=== PATIENT | male | born 1965 | race Caucasian/White ===

== ENCOUNTER 2016-06-04 15:30 | Emergency (ER) | payer OTHER ==
[2016-06-04] MEDS ORDERED: NS 0.9% 1000 ML* 1,000 ML IV ONE (18:36)
[2016-06-04 19:07] LABS: Hematocrit 43 % (42-52); Hemoglobin 14.8 g/dl (14.0-18.0); Mean Corpuscular HGB Conc 34 g/dl (31-36); Mean Corpuscular Hemoglobin 31 pg (27-31); Mean Corpuscular Volume 91 fL (80-94); Mean Platelet Volume 8 um3 (7.4-10.4); Red Blood Count 4.78 10^6/ul (4.0-5.4); Red Cell Distribution Width 13 % (10.5-15); White Blood Count 7.2 10^3/ul (3.5-10.8)
[2016-06-04 19:21] LABS: Troponin I 0.01 ng/mL (<0.04)
[2016-06-04 19:28] LABS: Albumin 4.2 g/dL (3.2-5.2); BUN/Creatinine Ratio 12.2 (8-20); C Reactive Protein 1.88 mg/L (< 5.00); Calcium 9.5 mg/dL (8.6-10.3); EGFR African American 103.7 (>60); EGFR Non-African American 80.6 (>60); Globulin 2.9 g/dL (2-4); Magnesium 2.2 mg/dL (1.9-2.7); Total Bilirubin 0.7 mg/dL (0.2-1.0); Total Protein 7.1 g/dL (6.4-8.9)
[2016-06-04 19:29] LABS: TSH (Thyroid Stimulating Horm) 1.63 mcIU/mL (0.34-5.60)
--- NOTE | 2016-06-04 19:42 | RAD ---
Indication: Chest pain. Single frontal view of the chest performed at 1850 hours was reviewed. Comparison is made with previous exam dated September 17, 2006. Cardiomegaly is noted. Lobulated right hemidiaphragm is noted. Lung nichols are clear. No changes noted since prior exam. IMPRESSION: NO ACTIVE CARDIOPULMONARY DISEASE IS NOTED.
--- NOTE | 2016-06-04 20:57 | RAD ---
Indication: Left leg edema. Duplex Doppler sonography of the deep venous system of the left lower extremity deep venous system was performed. Bilaterally the common femoral veins appear patent and compressible. Left proximal greater saphenous vein, proximal deep femoral vein, femoral vein, popliteal vein, posterior tibial veins and peroneal veins appear patent and compressible. Superficial thrombophlebitis is noted in the mid calf. IMPRESSION: NO EVIDENCE OF DEEP VENOUS THROMBOSIS IS IDENTIFIED. SUPERFICIAL THROMBOPHLEBITIS IN THE MID CALF.
--- NOTE | 2016-06-04 21:29 | ED ---
Estefany Saenz Alok, scribed for Kody Bazan MD on 06/04/16 at 2009 . Palpitations / Dysrhythmia - HPI Summary HPI Summary: Patient is a 50 year-old male coming to [facility] with a c/o rapid heart palpitations today at 1330 while walking. He states that he had to stop walking due to feelings of near-syncope and anxiety. His palpitations spontaneously resolved after 1 minute of rest, although he states he continued to have mild diaphoresis, SOB, and nausea afterwards. He also reports chest tightness, severity 3/10. He states he has had several similar episodes in the last 2 weeks , which he believe are related to exertion. He reports chronic LLE edema which he states may be related to an existing LLE superficial blood clot. He has an appointment with his director geothermal operations next week. - History of Current Complaint Chief Complaint: EDChestPainROMI Time Seen by Provider: 06/04/16 18:36 Hx Obtained From: Patient Onset/Duration: Gradual Onset, Lasting Minutes, Resolved Timing: Intermittent Episodes Lasting: - minute Severity Initially: Moderate Severity Currently: None Character: Fast Aggravating: Exertion Alleviating: Rest Associated Signs & Symptoms: Chest Pain, Shortness of Breath, Diaphoresis, Nausea - Allergy/Home Medications Allergies/Adverse Reactions: Allergies Allergy/AdvReac Type Severity Reaction Status Date / Time No Known Allergies Allergy Verified 06/04/16 18:14 PMH/Surg Hx/FS Hx/Imm Hx Cardiovascular History: Reports: Hx Hypercholesterolemia, Hx Hypertension - Borderline GI History: Reports: Other GI Disorders - hernia Psychiatric History: Reports: Hx Anxiety - Surgical History Surgery Procedure, Year, and Place: bariatric surgery Infectious Disease History: No Infectious Disease History: Denies: Traveled Outside the [place] in Last 30 Days - Family History Known Family History: Positive: Other - HLD - Social History Occupation: Employed Full-time Alcohol Use: None Substance Use Type: Reports: None Smoking Status (MU): Never Smoked Tobacco Review of Systems Positive: Skin Diaphoresis. Negative: Fever Negative: Blurred Vision Positive: Palpitations, Chest Pain Positive: Shortness Of Breath Positive: Nausea Positive: Edema Positive: Anxious All Other Systems Reviewed And Are Negative: Yes Physical Exam - Summary Physical Exam Summary: General: Well-appearing, no pain distress Skin: Warm, color reflects adequate perfusion, dry Head/Face: Normal Eyes: EOMI, TIFFANY ENT: Normal Neck: Supple, nontender Respiratory: CTA, breath present Cardiovascular: RRR. Left leg swollen Abdominal: Nontender, soft Bowel: Present Misc: Normal; strength/ROM intact Neuro: Normal; sensory/motor intact, A&Ox3 Psych: Affect/mood appropriate Triage Information Reviewed: Yes Vital Signs On Initial Exam: Initial Vitals Temp Pulse Resp BP Pulse Ox 97.8 F 70 16 132/85 100 06/04/16 15:43 06/04/16 15:43 06/04/16 15:43 06/04/16 15:43 06/04/16 15:43 Vital Signs Reviewed: Yes - [place] Coma Scale Coma Scale Total: 15 Diagnostics - Vital Signs Vital Signs Temp Pulse Resp BP Pulse Ox 06/04/16 19:00 62 17 100 06/04/16 18:30 62 13 122/89 98 06/04/16 18:11 63 99 06/04/16 18:09 119/74 06/04/16 17:42 98.2 F 61 20 114/77 99 06/04/16 16:43 98.2 F 63 16 110/76 99 06/04/16 15:43 97.8 F 70 16 132/85 100 - Laboratory Lab Results: Lab Results 06/04/16 06/04/16 06/04/16 Range/Units 18:45 18:45 18:45 WBC 7.2 (3.5-10.8) 10^3/ul RBC 4.78 (4.0-5.4) 10^6/ul Hgb 14.8 (14.0-18.0) g/dl Hct 43 (42-52) % MCV 91 (80-94) fL MCH 31 (27-31) pg MCHC 34 (31-36) g/dl RDW 13 (10.5-15) % Plt Count 241 (150-450) 10^3/ul MPV 8 (7.4-10.4) um3 Neut % (Auto) 70.6 (38-83) % Lymph % (Auto) 19.2 L (25-47) % [place] % (Auto) 8.3 (1-9) % Eos % (Auto) 1.6 (0-6) % Baso % (Auto) 0.3 (0-2) % Absolute Neuts (auto) 5.1 (1.5-7.7) 10^3/ul Absolute Lymphs (auto) 1.4 (1.0-4.8) 10^3/ul Absolute Monos (auto) 0.6 (0-0.8) 10^3/ul Absolute Eos (auto) 0.1 (0-0.6) 10^3/ul Absolute Basos (auto) 0 (0-0.2) 10^3/ul Absolute Nucleated RBC 0.01 10^3/ul Nucleated RBC % 0.1 INR (Anticoag Therapy) 0.93 (0.89-1.11) APTT 30.6 (26.0-36.3) seconds D-Dimer, Quantitative < 200 (Less Than 230) ng/mL Sodium 137 (133-145) mmol/L Potassium 4.0 (3.5-5.0) mmol/L Chloride 103 (101-111) mmol/L Carbon Dioxide 29 (22-32) mmol/L Anion Gap 5 (2-11) mmol/L BUN 12 (6-24) mg/dL Creatinine 0.98 (0.67-1.17) mg/dL Est GFR ( Amer) 103.7 (>60) Est GFR (Non-Af Amer) 80.6 (>60) BUN/Creatinine Ratio 12.2 (8-20) Glucose 90 (70-100) mg/dL Lactic Acid (0.5-2.0) mmol/L Calcium 9.5 (8.6-10.3) mg/dL Magnesium 2.2 (1.9-2.7) mg/dL Total Bilirubin 0.70 (0.2-1.0) mg/dL AST 25 (13-39) U/L ALT 21 (7-52) U/L Alkaline Phosphatase 59 (34-104) U/L Total Creatine Kinase 289 H (10-223) U/L CK-MB (CK-2) 8.7 H (0.6-6.3) ng/mL Troponin I 0.01 (<0.04) ng/mL C-Reactive Protein 1.88 (< 5.00) mg/L B-Natriuretic Peptide ( - 100) pg/mL Total Protein 7.1 (6.4-8.9) g/dL Albumin 4.2 (3.2-5.2) g/dL Globulin 2.9 (2-4) g/dL Albumin/Globulin Ratio 1.4 (1-3) Lipase 25 (11.0-82.0) U/L TSH 1.63 (0.34-5.60) mcIU/mL 06/04/16 06/04/16 Range/Units 18:45 18:45 WBC (3.5-10.8) 10^3/ul RBC (4.0-5.4) 10^6/ul Hgb (14.0-18.0) g/dl Hct (42-52) % MCV (80-94) fL MCH (27-31) pg MCHC (31-36) g/dl RDW (10.5-15) % Plt Count (150-450) 10^3/ul MPV (7.4-10.4) um3 Neut % (Auto) (38-83) % Lymph % (Auto) (25-47) % [place] % (Auto) (1-9) % Eos % (Auto) (0-6) % Baso % (Auto) (0-2) % Absolute Neuts (auto) (1.5-7.7) 10^3/ul Absolute Lymphs (auto) (1.0-4.8) 10^3/ul Absolute Monos (auto) (0-0.8) 10^3/ul Absolute Eos (auto) (0-0.6) 10^3/ul Absolute Basos (auto) (0-0.2) 10^3/ul Absolute Nucleated RBC 10^3/ul Nucleated RBC % INR (Anticoag Therapy) (0.89-1.11) APTT (26.0-36.3) seconds D-Dimer, Quantitative (Less Than 230) ng/mL Sodium (133-145) mmol/L Potassium (3.5-5.0) mmol/L Chloride (101-111) mmol/L Carbon Dioxide (22-32) mmol/L Anion Gap (2-11) mmol/L BUN (6-24) mg/dL Creatinine (0.67-1.17) mg/dL Est GFR ( Amer) (>60) Est GFR (Non-Af Amer) (>60) BUN/Creatinine Ratio (8-20) Glucose (70-100) mg/dL Lactic Acid 0.7 (0.5-2.0) mmol/L Calcium (8.6-10.3) mg/dL Magnesium (1.9-2.7) mg/dL Total Bilirubin (0.2-1.0) mg/dL AST (13-39) U/L ALT (7-52) U/L Alkaline Phosphatase (34-104) U/L Total Creatine Kinase (10-223) U/L CK-MB (CK-2) (0.6-6.3) ng/mL Troponin I (<0.04) ng/mL C-Reactive Protein (< 5.00) mg/L B-Natriuretic Peptide 35 ( - 100) pg/mL Total Protein (6.4-8.9) g/dL Albumin (3.2-5.2) g/dL Globulin (2-4) g/dL Albumin/Globulin Ratio (1-3) Lipase (11.0-82.0) U/L TSH (0.34-5.60) mcIU/mL Result Diagrams: 06/04/16 18:45 06/04/16 18:45 Lab Statement: Any lab studies that have been ordered have been reviewed, and results considered in the medical decision making process. - Radiology CXR Xray Interpretation: No Acute Changes Radiology Interpretation Completed By: Radiologist - EKG 1532 Cardiac Rate: NL - 91 bpm EKG Rhythm: Sinus Rhythm ST Segment: Normal Ectopy: PACs - Additional Comments Diagnostic Additional Comments: Lower extremity veins left US IMPRESSION: NO EVIDENCE OF DEEP VENOUS THROMBOSIS IS IDENTIFIED. SUPERFICIAL THROMBOPHLEBITIS IN THE MID CALF. Course/Dx - Course Assessment/Plan: WELL IN ED. DISCUSSED RESULTS WITH HIS PATIENT. PATIENT REPORTS HE HAS AN APPOINTMENT WITH HIS PAEDIATRIC THORACIC PHYSICIAN NEXT WEEK. DISCUSSED WITH DR EMANUEL. DISCHARGE HOME STABLE. - Diagnoses Provider Diagnoses: Palpitations - Physician Notifications Discussed Care Of Patient With: Dr. Emanuel (director geothermal operations) @ 19:20 - Dr. Emanuel states that it is okay for pt to follow up with his own director geothermal operations Discharge - Discharge Plan Condition: Stable Disposition: HOME Patient Education Materials: Palpitations (ED) Referrals: Lester BURCH,Waldemar Rosen [Primary Care Provider] - Additional Instructions: FOLLOW UP WITH YOUR PRIMARY CARE DOCTOR AND PAEDIATRIC THORACIC PHYSICIAN. DISCUSS HAVING AN EVENT MONITOR. RETURN TO THE EMERGENCY DEPARTMENT FOR ANY WORSENING OF YOUR CONDITION; CHEST PAIN, SHORTNESS OF BREATH, YOU FEEL LIKE YOU ARE GOING TO PASS OUT OR QUESTIONS OR CONCERNS. The documentation as recorded by the Estefany barfield Alok accurately reflects the service I personally performed and the decisions made by me, Kody Bazan MD.
[2016-06-04 21:35] VITALS: BP 124/82
== END 2016-06-04 21:34 | disposition home or self-care (01) ==
LOC: ED 15:30
DX: R00.2 Palpitations (principal); R07.9 Chest pain, unspecified; R06.02 Shortness of breath; R61 Generalized hyperhidrosis
CPT/HCPCS: 36415; 71010; 80053; 82550; 82553; 83605; 83690; 83735; 83880; 84443; 84484; 85025; 85379; 85610; 85730; 86140; 93005; 96360; 99283

== ENCOUNTER 2017-11-19 13:46 | Emergency (ER) | payer OTHER ==
[2017-11-19 13:57] VITALS: BP 118/72
--- NOTE | 2017-11-19 14:10 | UC ---
Cardiac HPI - HPI Summary HPI Summary: This is lico Nagel documenting for attending Kody Bazan MD. This patient is a 52 year old M resenting to [place] with a chief complaint of CP that occurred earlier today that has resolved. Pt has had intermittent CP with light headedness for the past few days. Today after a hike the patient states he felt fine but as time went on he began having CP accompanied by SOB, neck pain, epigastric pain, and pain into the left arm. He called his skate shop attendant and they suggested he come to see them. Patient was on his way to skate shop attendant in [place] when he felt he was going to pass out so he came to the ED. By the time the patient got here the sx resolved. These sx he had today accompany every instance of CP that he has been having intermittently. The patient rates the pain 0/10 in severity. He has not taken ASA today. Patient denies palpitations, LE pain, and LE edema. Hx anxiety and believes sx are related to this. He also has a hx of afib and had a cath last year where no occlusions were found. - History of Current Complaint Chief Complaint: UCChestPain Stated Complaint: SOB DIZZY CHEST PAIN Time Seen by Provider: 11/19/17 13:54 Hx Obtained From: Patient Onset/Duration: Lasting Minutes, Resolved Initial Severity: Moderate Current Severity: None Pain Intensity: 0 Chest Pain Location: Diffuse Alleviating Factor(s): Spontaneous Resolution Associated Signs & Symptoms: Positive: Anxiety, SOB, Syncope - near, Abdominal Pain. Negative: Palpitations, Calf Pain/Swelling - Allergy/Home Medications Allergies/Adverse Reactions: Allergies Allergy/AdvReac Type Severity Reaction Status Date / Time No Known Allergies Allergy Verified 11/19/17 13:57 Home Medications: Home Medications Aspirin 81 mg PO DAILY 11/19/17 [History Confirmed 11/19/17] Carvedilol [Coreg] 25 mg PO BID 11/19/17 [History Confirmed 11/19/17] Losartan TAB* [Cozaar TAB*] 25 mg PO DAILY 11/19/17 [History Confirmed 11/19/17] Pantoprazole TAB (NF) [Protonix TAB (NF)] 40 mg PO DAILY 11/19/17 [History Confirmed 11/19/17] Rivaroxaban TAB(*) [Xarelto 10 mg (*)] 10 mg PO DAILY 11/19/17 [History Confirmed 11/19/17] Simvastatin 20 mg pe PO DAILY 11/19/17 [History Confirmed 11/19/17] PMH/Surg Hx/FS Hx/Imm Hx Cardiovascular History: Hypertension, Atrial Fibrillation Other History Of: Negative For: Anticoagulant Therapy - Surgical History Surgical History: Yes Surgery Procedure, Year, and Place: bariatric surgery. [facility]. APPY. INCISIONAL HERNIA REPAIR - Family History Known Family History: Positive: Hypertension, Other - HLD - Social History Occupation: Employed Full-time Alcohol Use: Weekly Substance Use Type: Marijuana Substance Use Comment - Amount & Last Used: OCCASIONAL Smoking Status (MU): Never Smoked Tobacco Review of Systems Respiratory: Shortness Of Breath Cardiovascular: Chest Pain Gastrointestinal: Abdominal Pain Musculoskeletal: Other: - neck pain and pain in the left arm Psychological: Anxious All Other Systems Reviewed And Are Negative: Yes Physical Exam - Summary Physical Exam Summary: General: well-appearing, no pain distress Skin: warm, color reflects adequate perfusion, dry Head: normal Eyes: EOMI, TIFFANY ENT: normal Neck: supple, nontender Respiratory: CTA, breath sounds present Cardiovascular: RRR Abdomen: soft, nontender Bowel: present Musculoskeletal: normal, strength/ROM intact Neurological: sensory/motor intact, A&O x3 Psychological: affect/mood appropriate Triage Information Reviewed: Yes Vital Signs: Initial Vital Signs Pulse 71 11/19/17 13:50 Resp 18 11/19/17 13:50 BP 118/72 11/19/17 13:50 Pulse Ox 99 11/19/17 13:50 Vital Signs Reviewed: Yes Diagnostics - EKG Cardiac Rate: NL - at 1345 Cardiac Rhythm: Sinus: Normal - at 69 BPM, Other Rhythm: New - flipped t waves in 3 Ectopy: None - Assessment/Plan Course Of Treatment: TRANSFER TO ED BY AMBULANCE. - Clinical Impression Provider Diagnoses: CHEST PAIN. NEAR SYNCOPE Discharge - Sign-Out/Discharge Documenting (check all that apply): Patient Departure - transfered - Discharge Plan Condition: Stable Disposition: TRANS HIGHER LVL OF CARE FAC Referrals: Lester BURCH,Waldemar Rosen [Primary Care Provider] - - Billing Disposition and Condition Condition: STABLE Disposition: Trans Higher Lvl of Care Fac Attestation Statement Scribe Attestation: This is lico Nagel documenting for attending Kody Bazan MD. User Type: Provider with Scribe Provider Attestation: The documentation recorded by the scribe accurately reflects the service I personally performed and the decisions made by me.
[2017-11-19] MEDS ORDERED: Aspirin 81 mg CHEW TAB* 81 MG TAB.CHEW PO ONE (14:12)
[2017-11-19] MEDS ORDERED: Aspirin 81 mg CHEW TAB* 81 MG TAB.CHEW ONE (14:13)
== END 2017-11-19 14:25 | disposition short-term general hospital (02) ==
LOC: UCEAST 13:46
DX: R07.9 Chest pain, unspecified (principal); R55 Syncope and collapse; I10 Essential (primary) hypertension; Z79.01 Long term (current) use of anticoagulants
CPT/HCPCS: 93005; 99213; A9270-GY; G0463

== ENCOUNTER 2017-11-19 14:53 | Emergency (ER) | payer OTHER ==
--- NOTE | 2017-11-19 15:04 | ED ---
HPI Chest Pain - HPI Summary HPI Summary: This is scribe Ed She documenting for attending Dr. Bruno Jesus. 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 Pt still c/o mild lightheadedness currently. For the last few days the pt c/o intermittent SOB and lightheadedness. Pt went on a hike today and developed those same sx after his hike, but more intensely. PMHx AFIB, cardiac catheterization 1 year ago. Cement Contractor Angel Morales in [place]. I, Dr. Jesus, personally performed the services described in this documentation as scribed in my presence and it is both accurate and complete. - History of Current Complaint Chief Complaint: EDChestPainROMI Time Seen by Provider: 11/19/17 15:01 Hx Obtained From: Patient Onset/Duration: Started Hours Ago Timing: Lasting Minutes Pain Intensity: 0 Chest Pain Radiates To:: Other - L armpit Aggravating Factor(s): Nothing Alleviating Factor(s): Nothing Associated Signs and Symptoms: Positive: Shortness of Breath, Lightheadedness, Other: - near syncope - Allergy/Home Medications Allergies/Adverse Reactions: Allergies Allergy/AdvReac Type Severity Reaction Status Date / Time No Known Allergies Allergy Verified 11/19/17 13:57 PMH/Surg Hx/FS Hx/Imm Hx Previously Healthy: No Endocrine/Hematology History: Denies: Hx Anticoagulant Therapy Cardiovascular History: Reports: Hx Atrial Fibrillation, Hx Hypercholesterolemia , Hx Hypertension GI History: Reports: Other GI Disorders - hernia Psychiatric History: Reports: Hx Anxiety - Surgical History Surgery Procedure, Year, and Place: bariatric surgery. [place]. [facility]. INCISIONAL HERNIA REPAIR Infectious Disease History: No Infectious Disease History: Denies: Traveled Outside the US in Last 30 Days - Family History Known Family History: Positive: Hypertension, Other - HLD - Social History Alcohol Use: Occasionally Hx Substance Use: Yes Substance Use Type: Reports: Marijuana Substance Use Comment - Amount & Last Used: OCCASIONAL Hx Tobacco Use: No Smoking Status (MU): Never Smoked Tobacco Review of Systems Constitutional: Negative Eyes: Negative ENT: Negative Positive: Chest Pain Positive: Shortness Of Breath Gastrointestinal: Negative Genitourinary: Negative Musculoskeletal: Negative Skin: Negative Neurological: Other - lightheadedness and near syncope Psychological: Normal All Other Systems Reviewed And Are Negative: Yes Physical Exam - Summary Physical Exam Summary: Appearance: The patient is well-nourished in no acute distress and in no acute pain. Skin: The skin is warm and dry and skin color reflects adequate perfusion. HEENT: The head is normocephalic and atraumatic. The pupils are equal and reactive. The conjunctivae are clear and without drainage. Nares are patent and without drainage. Mouth reveals moist mucous membranes and the throat is without erythema and exudate. The external ears are intact. The ear canals are patent and without drainage. The tympanic membranes are intact. Neck: The neck is supple with full range of motion and non-tender. There are no carotid bruits. There is no neck vein distension. Respiratory: Chest is non-tender. Lungs are clear to auscultation and breath sounds are symmetrical and equal. Cardiovascular: Heart is regular rate and rhythm. There is no murmur or rub auscultated. There is no peripheral edema and pulses are symmetrical and equal. Abdomen: The abdomen is soft and non-tender. There are normal bowel sounds heard in all four quadrants and there is no organomegaly palpated. Musculoskeletal: There is no back tenderness noted. Extremities are non-tender with full range of motion. There is good capillary refill. There is no peripheral edema or calf tenderness elicited. Neurological: Patient is alert and oriented to person, place and time. The patient has symmetrical motor strength in all four extremities. Cranial nerves are grossly intact. Deep tendon reflexes are symmetrical and equal in all four extremities. Psychiatric: The patient has an appropriate affect and does not exhibit any anxiety or depression. Triage Information Reviewed: Yes Vital Signs On Initial Exam: Initial Vitals Temp Pulse Resp BP Pulse Ox 97.8 F 64 16 134/69 98 11/19/17 14:59 11/19/17 14:59 11/19/17 14:59 11/19/17 14:59 11/19/17 14:59 Vital Signs Reviewed: Yes Diagnostics - Vital Signs Vital Signs Temp Pulse Resp BP Pulse Ox 11/19/17 14:59 97.8 F 64 16 134/69 98 - Laboratory Result Diagrams: 11/19/17 15:44 11/19/17 15:44 Lab Statement: Any lab studies that have been ordered have been reviewed, and results considered in the medical decision making process. - EKG 1 EKG Interpretation: 15:11 - 64 BPM. Some LVH criteria EKG Comparison: No Significant Change - 06/04/16 Chest Pain Course/Dx - Course Course Of Treatment: Mr. Hook presented to the emergency department complaining of feeling horrible and getting diaphoretic about an hour after taking a hike around [facility]. He decided to go to his integration manager's office and while driving felt some pain in his left arm. He began to feel like he might faint and therefore he pulled off and came to the emergency department. He was kept on a monitor while labs are obtained an EKG including a delayed troponin. I spoke with the integration manager on-call for Dr. Morales who related that he had a normal cardiac catheterization about 10 months ago. It seems unlikely this was coronary artery disease and there is no sign of dysrhythmia although he has a history of intermittent atrial fibrillation. I recommended close follow-up with Dr. Morales. - Diagnoses Provider Diagnoses: Near syncope - Provider Notifications Time Discussed With Above Provider: 17:20 Instructed by Provider To: Have Pt Call For Appt. - Confirmed pt had cardiac cath. No arrythmia. F/u at office. (Spoke with a provider in Dr. Morales's office) Discharge - Sign-Out/Discharge Documenting (check all that apply): Patient Departure - Discharge Plan Condition: Stable Disposition: HOME Patient Education Materials: Near Syncope (ED) Referrals: Lester BURCH,Waldemar Rosen [Primary Care Provider] - Angel Morales MD [Medical Doctor] - 3 Days (PLEASE F/U IN 2-3 DAYS) Additional Instructions: RETURN TO THE ED FOR CHANGING/WORSENING SYMPTOMS - Billing Disposition and Condition Condition: STABLE Disposition: Home
[2017-11-19 15:43] LABS: Urine Appearance Clear; Urine Blood Negative (Negative); Urine Color Straw; Urine Ketones Negative (Negative); Urine Protein Negative (Negative); Urine Specific Gravity 1.008 (1.010-1.030); Urine Urobilinogen Negative (Negative)
[2017-11-19 15:50] LABS: ABS Basophils 0 10^3/ul (0-0.2); ABS Eosinophils 0.1 10^3/ul (0-0.6); ABS Monocytes 0.6 10^3/ul (0-0.8); ABS Neutrophils 6.6 10^3/ul (1.5-7.7); ABS Nucleated RBC 0 10^3/ul; Eosinophil % 1.2 % (0-6); Hematocrit 41 % (42-52); Lymphocyte % 12.3 % (25-47); Mean Corpuscular HGB Conc 34 g/dl (31-36); Mean Corpuscular Hemoglobin 31 pg (27-31); Mean Corpuscular Volume 91 fL (80-94); Nucleated Red Blood Cells % 0; Platelet Count 245 10^3/ul (150-450); Red Blood Count 4.55 10^6/ul (4.00-5.40); Red Cell Distribution Width 13 % (10.5-15); White Blood Count 8.3 10^3/ul (3.5-10.8)
[2017-11-19 16:07] LABS: EGFR Non-African American 87.2 (>60)
[2017-11-19 18:47] VITALS: BP 138/78
== END 2017-11-19 18:46 | disposition home or self-care (01) ==
LOC: ED 14:53
DX: R55 Syncope and collapse (principal); M79.622 Pain in left upper arm; R06.02 Shortness of breath; I48.91 Unspecified atrial fibrillation
CPT/HCPCS: 36415; 80053; 81003; 83605; 83735; 84443; 84484; 85025; 85379; 93005; 99284